=== PATIENT | female | born 1965 | race Caucasian/White ===

== ENCOUNTER 2017-05-20 18:40 | Emergency (ER) | payer OTHER ==
[~2017-05-20] VITALS: Ht 162.6 cm; Wt 112.0 kg
[~2017-05-20 18:40] MED LIST: INTEGRA CAPSUL1 EACH PO; Pepcid 20 MG TABLET PO; Synthroid PO
== END 2017-05-21 10:32 | disposition home or self-care (01) ==
LOC: ER 18:40
DX: R10.2 Pelvic and perineal pain (principal); R10.813 Right lower quadrant abdominal tenderness

== ENCOUNTER → 2022-08-30 | Emergency (ER) | payer OTHER ==
[~2022-08-30] VITALS: Ht 162.6 cm; Wt 124.7 kg
[~2022-08-30] MED LIST changes: +ALPRAZOLAM1 MG; +BUSPIRONE HCL10 MG; +CLONAZEPAM0.5 MG; +DIVALPROEX SOD250 MG; +DULOXETINE HCL30 MG; +GABAPENTIN800 M1; +QUETIAPINE FUM100 MG; +SERTRALINE HCL100 MG; +TRAZODONE HCL50 MG; +ZOLPIDEM TARTRAT5 MG
== END | disposition home or self-care (01) ==
LOC: ER 21:14
DX: F41.0 Panic disorder [episodic paroxysmal anxiety] (principal); Z86.59 Personal history of other mental and behavioral disorders

== ENCOUNTER 2023-06-10 05:41 | Emergency (ER) | payer OTHER ==
[~2023-06-10] VITALS: Ht 167.6 cm; Wt 124.7 kg
[2023-06-10] MEDS ORDERED: COZAAR100 MG PO (06:40)
[2023-06-10] MEDS ORDERED: ONDANSETRON HCL 2 MG/ML VIAL IV STA (07:25)
[2023-06-10] MEDS ORDERED: FAMOTIDINE/PF 20 MG/2 ML VIAL IV PUSH STA (07:25)
[2023-06-10] MEDS ORDERED: 0.9 % SODIUM CHLORIDE 1,000 ML IV ONE (07:30)
[2023-06-10 08:11] LABS: HEMOGLOBIN 9.3 g/dL (12.0-15.00); MEAN CORPUSCULAR HEMOGLOBIN 21.4 pg (27.00-32.0); PLATELET COUNT 238 K/uL (150-450); RED BLOOD COUNT 4.36 M/uL (4.00-6.00); RED CELL DISTRIBUTION WIDTH 23.7 % (11.5-14.5)
[2023-06-10 08:13] LABS: MEAN CELL VOLUME 68.9 fL (80.00-100.00)
[2023-06-10 08:40] LABS: INR 0.94; PARTIAL THROMBOPLASTIN TIME 26.8 SECONDS (22.0-34.0); PROTHROMBIN TIME 9.9 SECONDS (9.0-11.5)
[2023-06-10 08:48] LABS: ALBUMIN 3.2 gm/dL (3.4-5.0); BILIRUBIN TOTAL 0.19 mg/dL (0.3-1.2); CALCIUM 8.8 mg/dL (8.5-10.1); CREATININE SERUM 1.03 mg/dL (0.55-1.02); GFR 55.63; GLOBULINA 4.3 G/DL (2.4-3.5); POTASSIUM 4.34 mEq/L (3.5-5.1); TOTAL PROTEIN 7.5 gm/dL (6.4-8.2)
[2023-06-10 11:35] LABS: PH,URINE 6.5 (5.0-8.0); URINE APPEARANCE Clear; URINE BILIRRUBIN Negative (NEGATIVE); URINE BLOOD Trace; URINE COLOR Yellow; URINE GLUCOSE Negative (NEGATIVE); URINE LEUKOCYTE Small; URINE NITRATE Negative; URINE PROTEIN Negative (NEGATIVE); URINE UROBILINOGEN 0.2 E.U./dl
[2023-06-10 11:37] LABS: URINE BACTERIA 8358.4 uL (0.0-1933); URINE EPITHELIAL CELLS 9.7 uL (0.0-38.8); URINE RBC 5.6 uL (0.0-20.8); URINE WBC 233.7 uL (0.0-23.2)
[2023-06-10 12:02] LABS: ob NEGATIVE (NEGATIVE)
== END 2023-06-10 13:56 | disposition home or self-care (01) ==
LOC: ER 05:41
PROVIDERS: General Practice
DX: K92.0 Hematemesis (principal); Z87.19 Personal history of other diseases of the digestive system; I10 Essential (primary) hypertension; N83.291 Other ovarian cyst, right side
CPT/HCPCS: 36415; 71045; 74177; 96365; 96366; 99284; J7030; Q9965

== ENCOUNTER 2023-12-22 17:38 | Emergency (ER) | payer OTHER ==
[~2023-12-22] VITALS: Ht 167.6 cm; Wt 115.7 kg
[~2023-12-22 17:38] MED LIST changes: +COZAAR100 MG PO
[2023-12-22] MEDS ORDERED: AMBIEN5 MG (19:17)
[2023-12-22] MEDS ORDERED: 0.9 % SODIUM CHLORIDE 1,000 ML IV SCH (19:30)
[2023-12-22] MEDS ORDERED: HYOSCYAMINE SULFATE 0.125 MG TAB.SUBL SL ONE (19:30)
[2023-12-22] MEDS ORDERED: FAMOTIDINE/PF 20 MG in 0.9 % SODIUM CHLORIDE 8 ML IV PUSH STA (19:30)
[2023-12-22] MEDS ORDERED: HYOSCYAMINE SULFATE 0.125 MG TAB.SUBL ONE (19:38)
[2023-12-22] MEDS ORDERED: FAMOTIDINE/PF 20 MG/2 ML VIAL ONE (19:38)
[2023-12-22] MEDS ORDERED: KETOROLAC TROMETHAMINE 30 MG VIAL ONE (19:51)
[2023-12-22] MEDS ORDERED: KETOROLAC TROMETHAMINE 30 MG VIAL IV ONE (20:00)
[2023-12-22 20:15] LABS: HEMATOCRIT 30.8 % (36.0-45.00); HEMOGLOBIN 9.6 g/dL (12.0-15.00); MEAN CORPUSCULAR HEMOGLOBIN 21.7 pg (27.00-32.0); PLATELET COUNT 292 K/uL (150-450); RED BLOOD COUNT 4.41 M/uL (4.00-6.00)
[2023-12-22 20:26] LABS: MEAN CELL VOLUME 69.9 fL (80.00-100.00); RED CELL DISTRIBUTION WIDTH 18.7 % (11.5-14.5)
[2023-12-22 20:43] LABS: ALBUMIN 3.3 gm/dL (3.4-5.0); BILIRUBIN TOTAL 0.17 mg/dL (0.3-1.2); CALCIUM 9.5 mg/dL (8.5-10.1); CREATININE SERUM 0.92 mg/dL (0.55-1.02); GFR 63.15; GLOBULINA 5.2 G/DL (2.4-3.5); POTASSIUM 3.96 mEq/L (3.5-5.1); TOTAL PROTEIN 8.5 gm/dL (6.4-8.2)
[2023-12-22 21:10] LABS: PH,URINE 6.5 (5.0-8.0); URINE APPEARANCE Cloudy; URINE BILIRRUBIN Negative (NEGATIVE); URINE BLOOD Negative; URINE COLOR Yellow; URINE GLUCOSE Negative (NEGATIVE); URINE KETONE Trace (NEGATIVE); URINE LEUKOCYTE Moderate; URINE NITRATE Positive; URINE PROTEIN Negative (NEGATIVE); URINE UROBILINOGEN 0.2 E.U./dl
[2023-12-22 21:13] LABS: URINE EPITHELIAL CELLS 57.3 uL (0.0-38.8); URINE RBC 41.6 uL (0.0-20.8); URINE WBC 433.8 uL (0.0-23.2)
[2023-12-22 21:26] LABS: URINE BACTERIA > 9821.5 uL (0.0-1933); URINE CAST 0.15 uL (0.0-1.40); URINE CRYSTALS MODERATE /HPF; URINE MUCUS SCANT
[2023-12-22] MEDS ORDERED: PEPCID AC20 MG PO (21:50)
[2023-12-22] MEDS ORDERED: BACTRIM DS TAB1 EACH PO (21:50)
[2023-12-22] MEDS ORDERED: DICLOFENAC SODI75 MG PO (21:50)
[2023-12-22] MEDS ORDERED: CEFTRIAXONE SODIUM 2,000 MG VIAL ONE (21:58)
[2023-12-22] MEDS ORDERED: CEFTRIAXONE SODIUM 2,000 MG VIAL IV ONE (22:00)
[2023-12-22] MEDS ORDERED: TRAMADOL HCL 50 MG TABLET PO ONE (22:00)
== END 2023-12-22 23:35 | disposition home or self-care (01) ==
LOC: ER 17:39
PROVIDERS: General Practice
DX: N39.0 Urinary tract infection, site not specified (principal); R10.9 Unspecified abdominal pain